=== PATIENT | male | born 1990 | race Hispanic/Latino ===

== ENCOUNTER 2018-04-04 10:49 | Emergency (ER) | payer OTHER, SELFPAY ==
[2018-04-04 10:50] VITALS: BP 148/89; PULSE 87; RESP 14; TEMP 36.9; O2SAT 100; BMI 25.7
--- NOTE | 2018-04-04 11:02 | RAD_ITS ---
STUDY: X-RAY - RIGHT TIBIA AND FIBULA REASON FOR EXAM: Male, 27 years old. Foreign body. TECHNIQUE: AP and lateral view(s) of the tibia and fibula were obtained. COMPARISON: None. FINDINGS: Normal visualized tibia. Normal visualized fibula. There is a 6.2 cm metallic nail seen in the soft tissues overlying the lateral aspect of the fibula in the midportion. RAD/Tibia & Fibula 2 Views IMPRESSION: Metallic foreign body in keeping with a nail is seen within the superficial soft tissues in the midportion of the right leg overlying the lateral aspect of the fibula. Electronically Signed: Jeronimo Shahid MD at 11:34 EDT Tel [phone], Service support ,
--- NOTE | 2018-04-04 12:34 | ED.VISSUMM ---
- ER Visit Summary Date of Service: 04/04/18 Chief Complaint: Right lower extremity injury History of Present Illness: The patient is a 27 M presenting with right lower extremity injury. Patient was at work using a nail gun. He accidentally shot a nail through the lateral aspect of his right lower extremity. No other injuries. Last tetanus is unknown. Physical Examination: Vitals are stable. Patient is afebrile. Alert no acute distress. HEENT exam is unremarkable. Lungs are clear and equal bilaterally. Heart is regular rate and rhythm. Extremities: nail through the soft tissue of the lateral aspect of the right lower extremity, neurovascularly intact distally Skin is warm and dry. No focal neurologic deficit. Remainder of exam is unremarkable. Emergency Department Course and Treatment: Right tib-fib x-ray shows metallic foreign body in keeping with a nail is seen within the superficial soft tissues in the midportion of the right leg overlying the lateral aspect of the fibula. Patient was given tetanus IM. Area was anesthetized with lidocaine. Nail was removed. He is given a prescription for Keflex. He is advised to follow-up with [employer]. Advised return to ED if worsening complaints. Disposition: Discharge home Impression: Foreign body right lower extremity, foreign body removal This note was generated with [employer] dictation software. It may contain incorrect words, spelling, and punctuation that were not noted in review of the chart prior to signing ED Disposition - Plan for ED Patient: Chief Complaint: Foreign Body Referrals: Care Physician,No Primary [Primary Care Provider] -
--- NOTE | 2018-04-04 12:37 | ED.DEP ---
ED Disposition - Plan for ED Patient: Chief Complaint: Foreign Body Instructions: ED Foreign Body Soft Tissue Removed Prescriptions: Cephalexin [Keflex] 500 mg PO Q6 #40 capsule Referrals: Care Physician,No Primary [Primary Care Provider] - [facility] -
[2018-04-04] MEDS: Cephalexin 250 MG Capsule 500 MG PO (12:50)
[2018-04-04] MEDS: Diphth,Pertuss(Acell),Tet Vac 0.5 ML Vial IM (12:50)
[2018-04-04 13:14] VITALS: BP 145/99; PULSE 52; RESP 18; O2SAT 98
== END 2018-04-04 13:15 | disposition home or self-care (01) ==
PROVIDERS: Emergency Provider Emergency Medicine
DX: S81.841A Puncture wound with foreign body, right lower leg, initial encounter (principal); Z23 Encounter for immunization; W29.4XXA Contact with nail gun, initial encounter; Y93.89 Activity, other specified; Y92.89 Other specified places as the place of occurrence of the external cause; Y99.0 Civilian activity done for income or pay
CPT/HCPCS: 73590; 90471; 90715; 99283; A4216

== ENCOUNTER 2018-05-06 09:58 | Emergency (ER) | payer OTHER, SELFPAY ==
[2018-05-06 10:00] VITALS: BP 123/79; PULSE 50; RESP 15; TEMP 36.8; O2SAT 98; BMI 25.0
[2018-05-06 10:06] VITALS: O2SAT 97
--- NOTE | 2018-05-06 10:18 | ED.RN ---
PATIENT IS HERE FOR WORK RELATED INJURY AND [facility] IS SUPPOSED TO BE CONTACTED. GENERAL MGR OF PATIENT ISD PRESENT AND STATES NOT TO CALL [facility] AND HE WILL HAVE PATIENT FOLLOW UP LATER.
--- NOTE | 2018-05-06 10:37 | ED.VISSUMM ---
- ER Visit Summary Date of Service: 05/06/18 Chief Complaint: Ish nail in back History of Present Illness: The patient is a 24 M who has a ish nail in his back. Another worker was using the nail gun when the patient stood up into the area of this nail gun. A discharge in the left side of his back. Questionable as to when his last tetanus shot was. Patient denies any symptoms except for pain localized to that area. The patient does not speak Yoruba but a friend is here translating. Physical Examination: Signs are reviewed. Heart is regular rate and rhythm. Lungs are clear. Abdomen is soft. Back exam reveals a nail on the left thoracic musculature. There are no skin changes. His neurologic exam is at baseline. Test Results: X-rays reveal a foreign body in the back. There is no signs of pneumothorax. I then used 1% lidocaine to anesthetize the local area and the soft tissues around it. I was unable to remove the foreign body. I discussed with our surgeon here. He recommended CT scan to further delineate the area of this nail. Shows that it is embedded in the T10 vertebral body. At this point I feel he should be transferred for specialized care. He was given tetanus and Ancef. Spoke with Dr. Leon at [facility] and patient will be transferred there Emergency Department Course and Treatment: [] Treatment Plan: [] Disposition: Discharge Impression: Foreign body in T10 vertebral body This note was generated with [employer] dictation software. It may contain incorrect words, spelling, and punctuation that were not noted in review of the chart prior to signing ED Disposition - Plan for ED Patient: Chief Complaint: Trauma Referrals: Care Physician,No Primary [Primary Care Provider] -
[2018-05-06] MEDS: Morphine 4 MG/ML Syringe IV ×2 (10:46→12:58)
[2018-05-06] MEDS: Cefazolin 1 GM/50 ML BAG IV (12:55)
[2018-05-06] MEDS: Diphth,Pertuss(Acell),Tet Vac 0.5 ML Vial IM (12:56)
[2018-05-06 13:13] VITALS: BP 124/57; PULSE 52; RESP 15; O2SAT 97
[2018-05-06 13:17] VITALS: BP 124/77; PULSE 52; RESP 15; O2SAT 97
== END 2018-05-06 13:26 | disposition short-term general hospital (02) ==
PROVIDERS: Emergency Provider Emergency Medicine
DX: S21.242A Puncture wound with foreign body of left back wall of thorax without penetration into thoracic cavity, initial encounter (principal); W29.4XXA Contact with nail gun, initial encounter; Y93.9 Activity, unspecified; Y92.9 Unspecified place or not applicable
CPT/HCPCS: 71046; 71250; 74176; 90715; 96365; 96375; 96376; 99283; J7030; A4216